=== PATIENT | female | born 1990 | race American Indian/Alaskan Native ===

== ENCOUNTER 2019-12-08 09:13 | Outpatient (CLI) | payer BC ==
--- NOTE | 2019-12-08 10:26 | Vascular Lab Report ---
DUPLEX DOPPLER LOWER EXTREMITY VEINS, RIGHT INDICATION / CLINICAL INFORMATION: M25.471Effusion, right ankle/LEG SWELLING ANKLE. TECHNIQUE: Duplex doppler imaging was performed through the veins of the right lower extremity using venous comp ression and other maneuvers. COMPARISON: None available. FINDINGS: COMMON FEMORAL VEIN: Negative. FEMORAL VEIN: Negative. POPLITEAL VEIN: Negative. CALF VEINS: Negative. ADDITIONAL FINDINGS: None. IMPRESSION: 1. No sonographic evidence for DVT in the right lower extremity. Signer Name: Lucia Garcia MD Signed: 12/08/2019 10:22 AM Workstation Name: [id number]
== END 2019-12-08 09:14 | disposition home or self-care (01) ==
LOC: VAS 09:13
PROVIDERS: ATTEND Preventive Medicine Preventive Medicine/Occupational Environmental Medicine
DX: M25.471 Effusion, right ankle (principal); M79.89 Other specified soft tissue disorders